=== PATIENT | male | born 1935 | race African-American/Black ===

== ENCOUNTER 2016-09-06 13:39 | Emergency (ER) | payer OTHER ==
[~2016-09-06] VITALS: Ht 175.3 cm; Wt 59.1 kg
[2016-09-06 13:51] LABS: GLUCOSE,POINT OF CARE 107 MG/DL (70-110)
[2016-09-06 13:52] LABS: EOSINOPHILS % (AUTO) 2.2 % (1.0-6.0); HEMATOCRIT 34.7 % (41-53); HEMOGLOBIN 11.6 g/dL (13.5-17.5); LYMPHOCYTES # (AUTO) 1.6 K/uL (1.0-4.8); MEAN CORPUSCULAR HEMOGLOBIN 25.2 pg (26.0-34.0); MEAN CORPUSCULAR HGB CONC 33.4 G/dL (31.0-37.0); MEAN CORPUSCULAR VOLUME 75 fL (80-100); MONOCYTES # (AUTO) 0.6 K/uL (0.1-1.0); MONOCYTES % (AUTO) 9.4 % (2.0-9.0); NEUTROPHILS # (AUTO) 4.4 K/uL (1.8-7.7); NEUTROPHILS % (AUTO) 64.4 % (40.0-70.0); PLATELET COUNT (AUTO) 193 K/uL (150-450); RED BLOOD CELL COUNT(AUTO) 4.61 MIL/uL (4.50-5.90); RED CELL DISTRIBUTION WIDTH 18.5 % (11.5-14.5); WHITE BLOOD COUNT (AUTO) 6.9 K/uL (4.5-11.0)
[2016-09-06] MEDS ORDERED: IOVERSOL 350 MG/ML 100 ML VIAL ONE (13:54)
[2016-09-06] MEDS ORDERED: SODIUM CHLORIDE 0.9% 100 ML ONE (13:54)
[2016-09-06 14:02] LABS: ANION GAP 6 mmol/L (8-16); CARBON DIOXIDE 31 mmol/L (22-29); CHLORIDE 104 mmol/L (98-107); CREATININE 1.13 mg/dL (0.60-1.30); GLOMERULAR FILTR. RATE CALC > 60 mL/min (>60); POTASSIUM 4.1 mmol/L (3.5-5.1); SODIUM SERUM 141 mmol/L (136-145); UREA NITROGEN, BLOOD 17 mg/dL (7-18)
[2016-09-06 14:03] LABS: PROTHROMBIN TIME 10.9 SEC (9.4-11.6)
[2016-09-06 14:14] LABS: RBC MORPHOLOGY COMMENT ABNORMAL RBC MORPH
[2016-09-06] MEDS ORDERED: HALO1 PO (14:15)
[2016-09-06] MEDS ORDERED: FAMO20 PO (14:15)
[2016-09-06] MEDS ORDERED: ATOR10TA84 PO (14:15)
[2016-09-06] MEDS ORDERED: SERT100T12 PO (14:15)
[2016-09-06 14:38] LABS: ALANINE AMINOTRANSFERASE 19 U/L (12-78); ALBUMIN 3.5 g/dL (3.4-5.0); ASPARTATE AMINOTRANSFERASE 17 U/L (15-37); BILIRUBIN,TOTAL 0.5 mg/dL (0.1-1.0); CREATINE KINASE MB 0.9 ng/mL (0-5); CREATINE KINASE, TOTAL 91 U/L (39-308); TOTAL PROTEIN, SERUM 7.3 g/dL (6.4-8.2)
[2016-09-06 15:22] LABS: APPEARANCE,URINE CLEAR (CLEAR); GLUCOSE, URINE (UA) NEGATIVE (NEGATIVE); KETONES,URINE NEGATIVE (NEGATIVE); LEUKOCYTE ESTERASE ,URINE NEGATIVE (NEGATIVE); OCCULT BLOOD,URINE NEGATIVE (NEGATIVE); PROTEIN,URINE NEGATIVE (NEGATIVE)
[2016-09-06 15:23] LABS: ADD UA MICROSCOPIC NO
[2016-09-06] MEDS ORDERED: ASPIRIN 81 MG CHEWABLE TABLET PO ONE (15:30)
[2016-09-06 17:37] VITALS: BP 144/74
== END 2016-09-06 18:15 | disposition short-term general hospital (02) ==
LOC: EMS 13:42
DX: G45.9 Transient cerebral ischemic attack, unspecified (principal); I10 Essential (primary) hypertension; K21.9 Gastro-esophageal reflux disease without esophagitis
CPT/HCPCS: 36415; 70450; 70496; 71010; 80053; 81003; 82550; 82553; 82962; 84484; 85025; 85610; 85730; 93005; 99291; J7050; Q9967